=== PATIENT | female | born 2000 | race Caucasian/White ===

== ENCOUNTER 2023-10-04 10:27 | Emergency (ER) | payer OTHER ==
[2023-10-04 10:36] VITALS: BP 105/74; PULSE 88; RESP 20; TEMP 98; BMI 23.3
== END 2023-10-04 12:31 | disposition left against medical advice (07) ==
LOC: EDBD 10:27 → JER 10:27
DX: Z53.21 Procedure and treatment not carried out due to patient leaving prior to being seen by health care provider (principal)
CPT/HCPCS: 99281-25

== ENCOUNTER 2023-10-13 12:57 | Day surgery (SDC) | payer OTHER ==
[2023-10-12 16:14] VITALS: BMI 22.6
[2023-10-13 14:42] VITALS: TEMP 98
[2023-10-13 14:44] VITALS: BP 123/67; PULSE 88; RESP 19
== END 2023-10-13 14:35 | disposition home or self-care (01) ==
LOC: FASU-ENDO 12:57
PROVIDERS: ATTEND Internal Medicine Gastroenterology
PROC: 0DB68ZX Excision of Stomach, Via Natural or Artificial Opening Endoscopic, Diagnostic (ICD-10-PCS; 2023-10-13)
PROC: 0DB48ZX Excision of Esophagogastric Junction, Via Natural or Artificial Opening Endoscopic, Diagnostic (ICD-10-PCS; 2023-10-13)
PROC: 0DB98ZX Excision of Duodenum, Via Natural or Artificial Opening Endoscopic, Diagnostic (ICD-10-PCS; principal; 2023-10-13 14:02)
DX: K92.0 Hematemesis (principal); K29.50 Unspecified chronic gastritis without bleeding; K20.90 Esophagitis, unspecified without bleeding; R10.13 Epigastric pain
CPT/HCPCS: 81025; 88305-TC; 88342-TC